=== PATIENT | male | born 1985 | race Caucasian/White ===

== ENCOUNTER 2020-05-20 09:14 | Emergency (ER) | payer SELFPAY ==
[2020-05-20 09:32] VITALS: BP 146/94; PULSE 99
--- NOTE | 2020-05-20 10:02 | EDM.PDOC ---
ED HPI GENERAL MEDICAL PROBLEM - General Chief Complaint: ENT Problem Stated Complaint: SWOLLEN THROAT/EAR PAIN/JAW PAIN Time Seen by Provider: 05/20/20 09:37 Source of Information: Reports: Patient, RN Notes Reviewed - History of Present Illness INITIAL COMMENTS - FREE TEXT/NARRATIVE: onset of sore throat 8 to 10 days ago, getting worse. no cough or difficulty breathing. No strong covid concerns. Left Face/Facial Pain Score (Numeric/FACES): 8 - Related Data Allergies Allergy/AdvReac Type Severity Reaction Status Date / Time Foam Rubber Allergy Severe Difficulty Uncoded 05/20/20 09:32 Breathing Home Meds: Home Meds Acetaminophen/HYDROcodone [[place] 325-5 MG] 1 tab PO Q4H PRN #10 tablet 05/20/20 [Rx] Penicillin V Potassium 500 mg PO Q6HR #40 tab 05/20/20 [Rx] Past Medical History - Past Health History Medical/Surgical History: Denies Medical/Surgical History Genitourinary History: Reports: Renal Calculus - Past Surgical History HEENT Surgical History: Reports: Adenoidectomy, Tonsillectomy Social & Family History - Tobacco Use Tobacco Use Status *Q: Current Every Day Tobacco User Years of Tobacco use: 13 Packs/Tins Daily: 1 - Caffeine Use Caffeine Use: Reports: Tea - Recreational Drug Use Recreational Drug Use: No ED ROS ENT - Review of Systems Review Of Systems: See Below Constitutional: Reports: Fever, Chills HEENT: Reports: Throat Pain Respiratory: Denies: Shortness of Breath, Cough Cardiovascular: Denies: Chest Pain GI/Abdominal: Denies: Abdominal Pain, Vomiting Musculoskeletal: Reports: No Symptoms Skin: Reports: No Symptoms Neurological: Reports: No Symptoms ED EXAM, ENT - Physical Exam Exam: See Below General Appearance: Alert, No Apparent Distress Mouth/Throat: Pharyngeal Erythema, Throat Swelling (very mild), Other (tonsils are gone) Neck: Supple Respiratory/Chest: No Respiratory Distress Extremities: Normal Inspection Neurological: Alert, Oriented, No Motor/Sensory Deficits Skin: Warm, Dry, Normal Color Course - Vital Signs Last Recorded V/S: Last Vital Signs Temp 97.6 F 05/20/20 09:29 Pulse 99 05/20/20 09:29 Resp 16 05/20/20 09:29 BP 146/94 H 05/20/20 09:29 Pulse Ox 100 05/20/20 09:29 Departure - Departure Time of Disposition: 09:56 Disposition: Home, Self-Care 01 Condition: Fair Clinical Impression: Pharyngitis Qualifiers: Pharyngitis/tonsillitis etiology: streptococcus Qualified Code(s): J02.0 - Streptococcal pharyngitis - Discharge Information Prescriptions: Acetaminophen/HYDROcodone [[place] 325-5 MG] 1 tab PO Q4H PRN #10 tablet PRN Reason: Pain Penicillin V Potassium 500 mg PO Q6HR #40 tab Instructions: Strep Throat, Adult, [id number] Referrals: PCP,None [Primary Care Provider] - Forms: ED Department Discharge Additional Instructions: Pen VK 500 mg 4 times daily until gone. Alternate tylenol and aleve or ibuprofen when driving for discomfort as needed. You may take hydrocodone for severe pain and rest when not driving. Prescriptions have been sent to [facility] [employer]. Drink plenty of water to maintain hydration. Follow up clinic or ED if not much better within 4 to 5 days as expected. Sepsis Event Note (ED) - Evaluation Sepsis Screening Result: No Definite Risk - Focused Exam Vital Signs: Vital Signs Temp Pulse Resp BP Pulse Ox 05/20/20 09:29 97.6 F 99 16 146/94 H 100
== END 2020-05-20 10:30 | disposition home or self-care (01) ==
LOC: JD.ED 09:14
DX: J02.0 Streptococcal pharyngitis (principal); F17.210 Nicotine dependence, cigarettes, uncomplicated; Z91.040 Latex allergy status; Z90.49 Acquired absence of other specified parts of digestive tract
CPT/HCPCS: 99283

== ENCOUNTER 2022-03-05 07:38 | Emergency (ER) | payer OTHER, BC ==
[2022-03-05 07:54] VITALS: PULSE 70
[2022-03-05 11:49] VITALS: BP 130/86
== END 2022-03-05 11:30 | disposition home or self-care (01) ==
LOC: JD.ED 07:38
DX: S93.602A Unspecified sprain of left foot, initial encounter (principal); Z88.8 Allergy status to other drugs, medicaments and biological substances; F17.210 Nicotine dependence, cigarettes, uncomplicated; V20.4XXA Motorcycle driver injured in collision with pedestrian or animal in traffic accident, initial encounter
CPT/HCPCS: 73630-26-LT; 73630-LT; 73700-26-LT; 73700-LT; 99284

== ENCOUNTER 2022-03-30 17:32 | Emergency (ER) | payer BC ==
[2022-03-30] MEDS ORDERED: Bupivacaine 0.5% 10 ML SDV INJECT ONE (18:35)
[2022-03-30] MEDS ORDERED: Lidocaine 1% 10 ML MDV INJECT ONE (18:35)
[2022-03-30 19:15] VITALS: BP 132/92; PULSE 85
== END 2022-03-30 20:24 | disposition home or self-care (01) ==
LOC: JD.ED 17:32
DX: S61.112A Laceration without foreign body of left thumb with damage to nail, initial encounter (principal); Z91.040 Latex allergy status; W31.89XA Contact with other specified machinery, initial encounter
CPT/HCPCS: 12002; 73140; 99283; J3490

== ENCOUNTER 2022-05-30 17:46 | Emergency (ER) | payer BC ==
[2022-05-30] MEDS ORDERED: Ondansetron 4 MG/2 ML SDV IVPUSH ONE (18:16)
[2022-05-30] MEDS ORDERED: Sodium Chloride 0.9% 10 ML Syringe FLUSH PRN (18:16)
[2022-05-30 18:22] VITALS: BP 153/83; PULSE 77
[2022-05-30] MEDS ORDERED: Sodium Chloride 0.9% 1,000 ML IV SCH (18:30)
[2022-05-30] MEDS ORDERED: Ketorolac 30 MG/ML SDV IVPUSH ONE (18:43)
== END 2022-05-30 21:14 | disposition home or self-care (01) ==
LOC: JD.ED 17:46
DX: M54.50 Low back pain, unspecified (principal); F17.210 Nicotine dependence, cigarettes, uncomplicated; Z91.048 Other nonmedicinal substance allergy status
CPT/HCPCS: 36415; 74176; 80053; 81001; 85025; 87086; 96361; 96374; 96375; 99284; J1885; J2405; J3490; J7030

== ENCOUNTER 2022-06-07 15:37 | Emergency (ER) | payer BC ==
[2022-06-07] MEDS ORDERED: predniSONE 20 MG Tab PO ONE (16:09)
[2022-06-07] MEDS ORDERED: Albuterol/Ipratropium 3.0-0.5 MG/3 ML Neb Soln NEB ONE (16:09)
[2022-06-07] MEDS ORDERED: Azithromycin 250 MG Tab PO STA (16:30)
[2022-06-07 17:38] VITALS: BP 127/84; PULSE 85
== END 2022-06-07 17:20 | disposition home or self-care (01) ==
LOC: JD.ED 15:37
DX: J18.9 Pneumonia, unspecified organism (principal); J45.901 Unspecified asthma with (acute) exacerbation; Z72.0 Tobacco use; Z91.048 Other nonmedicinal substance allergy status; Z79.899 Other long term (current) drug therapy
CPT/HCPCS: 71046; 94640; 99285; A9270; J7512; J7620-GY

== ENCOUNTER 2024-05-11 17:26 | Emergency (ER) | payer BC ==
[2024-05-11 18:24] LABS: BASOPHILS PERCENT AUTO 0.1 % (0.0-1.0); EOSINOPHILS PERCENT AUTO 0.5 % (0.0-6.0); HEMATOCRIT 46.1 % (42.0-52.0); HEMOGLOBIN 15.6 gm/dl (14.0-18.0); IMMATURE GRAN ABSOLUTE AUTO 0.01 K/mm3 (0.00-0.05); IMMATURE GRAN PERCENT AUTO 0.1 % (0.0-0.4); LYMPHOCYTES ABSOLUTE AUTO 2.9 K/mm3 (1.0-4.8); LYMPHOCYTES PERCENT AUTO 32.7 % (24.0-44.0); MEAN CORPUSCULAR HEMOGLOBIN 31.1 pg (28.0-32.0); MEAN CORPUSCULAR HGB CONC 33.8 g/dl (32.0-36.0); MEAN PLATELET VOLUME 8.9 fl (9.4-12.4); MONOCYTES ABSOLUTE AUTO 0.5 K/mm3 (0.0-0.8); MONOCYTES PERCENT AUTO 5.3 % (0.0-8.0); NEUTROPHILS ABSOLUTE AUTO 5.4 K/mm3 (1.8-7.7); NEUTROPHILS PERCENT AUTO 61.3 % (41.0-71.0); PLATELET COUNT,PLT 259 K/mm3 (150-400); RED BLOOD CELL COUNT 5.01 M/mm3 (4.52-5.90); WHITE BLOOD CELL COUNT,WBC 8.84 K/mm3 (3.9-11.3)
[2024-05-11 18:37] LABS: A/G RATIO 1.2 (1-2); ALANINE AMINOTRANSFERASE,ALT 26 U/L (16-63); ALBUMIN 4.3 g/dl (3.4-5.0); ALKALINE PHOSPHATASE 78 U/L (46-116); ANION GAP 12.2 (5-15); ASPARTATE AMNIOTRANSFERASE,AST 23 U/L (15-37); BILIRUBIN TOTAL 0.3 mg/dL (0.2-1.0); BLOOD UREA NITROGEN,BUN 10 mg/dL (7-18); BUN/CREATININE RATIO 8.3 (14-18); CALCIUM 9.4 mg/dL (8.5-10.1); CARBON DIOXIDE,CO2 29 mEq/L (21-32); CHLORIDE,CL 101 mEq/L (98-107); CREATININE 1.2 mg/dL (0.7-1.3); ESTIMATED GFR 80 mL/min (>60); GLUCOSE RANDOM 93 mg/dL (70-99); POTASSIUM,K 3.2 mEq/L (3.5-5.1); PROTEIN TOTAL,TP 7.9 g/dl (6.4-8.2); SODIUM,NA 139 mEq/L (136-145); TROPONIN I HIGH SENSITIVITY 7 pg/mL (<=76)
[2024-05-11 20:41] VITALS: BP 136/103; PULSE 82
== END 2024-05-11 19:59 | disposition home or self-care (01) ==
LOC: EEVIPCON 17:26 → JD.ED 17:26
DX: R07.89 Other chest pain (principal); F17.210 Nicotine dependence, cigarettes, uncomplicated; Z91.048 Other nonmedicinal substance allergy status
CPT/HCPCS: 36415; 71046; 71046-26; 80053; 84484; 85025; 85379; 93005; 99285